=== PATIENT | male | born 1985 | race African-American/Black ===

== ENCOUNTER → 2017-06-04 | Emergency (ER) | payer SELFPAY ==
--- NOTE | 2017-06-04 13:22 | NUR ---
Patient eloped from facility. ER MD notified.
== END | disposition left against medical advice (07) ==
LOC: ER 13:14
DX: Z53.21 Procedure and treatment not carried out due to patient leaving prior to being seen by health care provider (principal)
CPT/HCPCS: A4606; Z7610